=== PATIENT | male | born 1980 | race African-American/Black ===

== ENCOUNTER 2024-07-29 11:04 | Emergency (ER) | payer OTHER ==
[2024-07-29 11:26] VITALS: BP 126/73; PULSE 61; RESP 18; TEMP 98.7; BMI 27.2
[2024-07-29] MEDS ORDERED: CYCLOBENZAPRINE HCL 10 MG TABLET (FP) ONE (13:15)
[2024-07-29] MEDS ORDERED: IBUPROFEN 600 MG TABLET (FP) PO ONE (13:15)
[2024-07-29] MEDS: IBUPROFEN 600 MG TABLET (FP) PO ONE (13:17)
[2024-07-29] MEDS: CYCLOBENZAPRINE HCL 10 MG TABLET (FP) PO ONE (13:17)
== END 2024-07-29 14:13 | disposition home or self-care (01) ==
LOC: JERFT 11:04
DX: M54.50 Low back pain, unspecified (principal)
CPT/HCPCS: 99283-25

== ENCOUNTER 2024-09-23 08:17 | Emergency (ER) | payer OTHER ==
[2024-09-23 08:27] VITALS: BP 113/67; PULSE 61; RESP 16; TEMP 98.3; BMI 25.6
[2024-09-23] MEDS ORDERED: LIDOCAINE 4% PATCH TP ONE (09:18)
[2024-09-23] MEDS ORDERED: KETOROLAC TROMETHAMINE 30 MG/1 ML VIAL ONE (09:23)
[2024-09-23] MEDS: ACETAMINOPHEN 500 MG TABLET (FP) PO ONE (09:26)
[2024-09-23] MEDS: KETOROLAC TROMETHAMINE 30 MG/1 ML VIAL IM ONE (09:32)
[2024-09-23] MEDS: LIDOCAINE 5% TOPICAL PATCH TP ONE (09:32)
[2024-09-23] MEDS ORDERED: LIDOCAINE PATCH REMOVAL MC ONE (22:00)
== END 2024-09-23 10:27 | disposition home or self-care (01) ==
LOC: JERFT 08:17
PROC: 3E0133Z Introduction of Anti-inflammatory into Subcutaneous Tissue, Percutaneous Approach (ICD-10-PCS; principal; 2024-09-23)
DX: M54.6 Pain in thoracic spine (principal); G89.29 Other chronic pain; M54.50 Low back pain, unspecified; K64.9 Unspecified hemorrhoids; N52.9 Male erectile dysfunction, unspecified
CPT/HCPCS: 71045-TC-FY; 96372; 99284-25

== ENCOUNTER 2025-03-09 08:33 | Emergency (ER) | payer OTHER ==
[2025-03-09 08:39] VITALS: BMI 25.4
[2025-03-09] MEDS ORDERED: ACETAMINOPHEN INJECTION 100 ML ONE (09:19)
[2025-03-09] MEDS: ACETAMINOPHEN 1000 MG/100 ML BAG IVPB ONE (09:36)
[2025-03-09 09:39] LABS: HEMATOCRIT 43.6 % (40.1-51.0); HEMOGLOBIN 14.5 g/dL (13.7-17.5); MCHC 33.3 g/dl (32.3-36.5); MEAN CELL VOLUME 94.8 fl (79.0-92.2); MEAN PLT VOLUME 10.1 fl (9.4-12.4); PLATELET COUNT 225 x10^3/uL (163-337); RDW 12.7 % (12.1-15.9)
[2025-03-09 10:05] LABS: ALBUMIN 3.7 g/dl (3.4-5.0); CALCIUM 9.4 mg/dL (8.5-10.1)
[2025-03-09 10:06] LABS: BLOOD UREA NITROGEN 11.1 mg/dL (7-18); POTASSIUM 4.1 mmol/L (3.5-5.1)
[2025-03-09 10:09] LABS: CREATININE 1.3 mg/dL (0.55-1.3)
[2025-03-09 10:10] LABS: BILIRUBIN,TOTAL 1.3 mg/dL (0.2-1); TOT PROT 7.5 g/dl (6.4-8.2)
[2025-03-09 10:21] LABS: INR 1.16 (0.83-1.09); PROTHROMBIN TIME (PATIENT) 12.6 SEC (9.7-13.0)
[2025-03-09 10:24] LABS: ACTIVATED PTT 34.7 SECONDS (25.2-36.5)
[2025-03-09 11:10] VITALS: BP 126/95; PULSE 56; RESP 15; TEMP 97.6
[2025-03-09 12:27] LABS: HCV DIAGNOSTIC IN-HOUSE W/RFLX NON-REACTIVE (NONREACTIVE); HIV INTERPRETATION NEGATIVE (NEGATIVE)
== END 2025-03-09 11:14 | disposition home or self-care (01) ==
LOC: JER 08:33
PROC: 3E033NZ Introduction of Analgesics, Hypnotics, Sedatives into Peripheral Vein, Percutaneous Approach (ICD-10-PCS; principal; 2025-03-09)
DX: R07.89 Other chest pain (principal); R00.2 Palpitations
CPT/HCPCS: 36415; 71045-TC-FY; 80053; 84443; 84484; 85025; 85610; 85730; 86803; 87389; 93005; 93010; 99285-25; J0131